=== PATIENT | male | born 1970 | race Caucasian/White ===

== ENCOUNTER 2020-02-26 10:09 | Emergency (ER) | payer OTHER ==
--- NOTE | 2020-02-26 10:38 | TELE ---
HPI - General Reason For Visit: COVID 19 TEST Time Seen by Provider: 02/26/20 10:34 History Source: Patient Exam Limitations: Clinical Condition - History of Present Illness Associated Symptoms: reports: denies symptoms 02/26/20 10:34 Patient with no significant past medical history presents to [facility] for Covid testing status post traveling to [place] in a few days. Patient denies any symptoms. Denies cough, shortness of breath. Denies any other complaints Past History - Medical History Allergies/Adverse Reactions: Allergies Allergy/AdvReac Type Severity Reaction Status Date / Time Penicillins Allergy Trouble Unverified 02/08/16 15:21 Breathing Review of Systems - Review of Systems Able to Perform ROS?: Yes Limited Dutch proficient: No Constitutional: No: Chills, Fever, Malaise HEENTM: No: Symptoms Reported, See HPI, Eye Pain, Blurred Vision, Tearing, Recent change in vision, Double Vision, Cataracts, Ear Pain, Ocular Prothesis, Ear Discharge, Nose Pain, Nose Congestion, Tinnitus, Nose Bleeding, Hearing Loss, Throat Pain, Throat Swelling, Mouth Pain, Dental Problems, Difficulty Swallowing, Mouth Swelling, Other Respiratory: No: Symptoms reported, See HPI, Cough, Orthopnea, Shortness of Breath, SOB with Exertion, SOB at Rest, Stridor, Wheezing, Productive cough, Hemoptysis, Other Cardiac (ROS): No: Symptoms Reported, See HPI, Chest Pain, Edema, Irregular Heart Rate, Lightheadedness, Palpitations, Syncope, Chest Tightness, Other ABD/GI: No: Symptoms Reported, Nausea, Vomiting Musculoskeletal: No: Symptoms Reported Integumentary: No: Symptoms Reported All Other Systems: Reviewed and Negative *Physical Exam - Physical Exam General Appearance: Yes: Nourished, Appropriately Dressed. No: Apparent Distress HEENT: positive: Normal ENT Inspection Respiratory/Chest: negative: Respiratory Distress, Accessory Muscle Use Musculoskeletal: positive: Normal Inspection Extremity: negative: Normal Inspection, Normal Range of Motion Integumentary: positive: Normal Color Neurologic: positive: Fully Oriented, Alert, Normal Mood/Affect, Normal Response, Motor Strength 5/5 - Medical Decision Making 02/26/20 10:36 Patient with no significant past medical history presents to [facility] for Covid testing status post traveling to [place] in a few days. Patient denies any symptoms. Denies cough, shortness of breath. Denies any other complaints Patient is asymptomatic at this time. Covid test ordered as per patient's request. Patient to go to [facility] drive-through testing center today for Covid testing. Patient stable for discharge Discharge Diagnosis at time of Disposition: Counseled about COVID-19 virus infection - Referrals - Patient Instructions - Discharge Disposition: HOME Condition at time of Disposition: Stable
== END 2020-02-26 10:38 | disposition home or self-care (01) ==
LOC: JVIRT 10:09
DX: Z03.818 Encounter for observation for suspected exposure to other biological agents ruled out (principal)
CPT/HCPCS: C9803; Q3014-GT; U0003

== ENCOUNTER 2023-01-21 21:48 | Emergency (ER) | payer OTHER ==
[2023-01-21 22:00] VITALS: TEMP 98; BMI 29.2
[2023-01-21] MEDS ORDERED: IBUPROFEN 400 MG TABLET (FP) PO ONE ×2 (22:11→22:13)
[2023-01-22 01:40] VITALS: BP 154/104; PULSE 72; RESP 16
== END 2023-01-22 01:46 | disposition home or self-care (01) ==
LOC: FER 21:48
DX: M54.2 Cervicalgia (principal); M54.6 Pain in thoracic spine; R51.9 Headache, unspecified; V89.2XXA Person injured in unspecified motor-vehicle accident, traffic, initial encounter
CPT/HCPCS: 71046-TC-FY; 72125-TC; 99284-25